=== PATIENT | female | born 1960 | race Caucasian/White ===

== ENCOUNTER 2020-02-19 11:33 | Emergency (ER) | payer OTHER ==
[2020-02-19] MEDS ORDERED: Meclizine 25 MG Tab PO ONE (12:43)
[2020-02-19] MEDS ORDERED: Ondansetron 4 MG Tab.DIS PO ONE (12:43)
--- NOTE | 2020-02-19 12:49 | EDM.PDOC ---
ED HPI GENERAL MEDICAL PROBLEM - General Chief Complaint: General Stated Complaint: LIGHT HEADED AND VERY DIZZY Time Seen by Provider: 02/19/20 12:32 Source of Information: Reports: Patient History Limitations: Reports: No Limitations - History of Present Illness Onset: Today Onset Date: 02/19/20 Onset Time: 08:00 Location: Reports: Head Quality: Reports: Other (Dizzy and vertigo lightheaded) Severity: Moderate Improves with: Reports: Rest, Other (Not moving head and having lights off. Rest. ) Worsens with: Reports: Movement Associated Symptoms: Reports: Headaches, Nausea/Vomiting denies Pain Score (Numeric/FACES): 0 - Related Data Allergies Allergy/AdvReac Type Severity Reaction Status Date / Time acetaminophen [From Percocet] Allergy Headache Verified 02/19/20 12:01 bee venom protein (honey bee) Allergy Swelling Verified 02/19/20 12:01 nickel Allergy Rash Verified 02/19/20 12:00 oxycodone [From Percocet] Allergy Headache Verified 02/19/20 12:01 Home Meds: Home Meds Metoprolol Succinate [Toprol XL] 25 mg PO BEDTIME 02/19/20 [History] Past Medical History HEENT History: Reports: Impaired Vision Cardiovascular History: Reports: Hypertension [employer] History: Reports: Neurological History: Reports: Concussion Endocrine/Metabolic History: Reports: Obesity/BMI 30+ Oncologic (Cancer) History: Reports: Uterine - Infectious Disease History Infectious Disease History: Reports: Chicken Pox, Measles - Past Surgical History HEENT Surgical History: Reports: Tonsillectomy GI Surgical History: Reports: Colonoscopy Female Surgical History: Reports: Hysterectomy, Salpingo-Oophorectomy Social & Family History - Tobacco Use Smoking Status *Q: Current Every Day Smoker Years of Tobacco use: 40 Packs/Tins Daily: 0.5 Used Tobacco, but Quit: No Second Hand Smoke Exposure: Yes - Caffeine Use Caffeine Use: Reports: Coffee, Energy Drinks, Soda - Alcohol Use Days Per Week of Alcohol Use: 0 - Recreational Drug Use Recreational Drug Use: No ED ROS GENERAL - Review of Systems Review Of Systems: See Below Constitutional: Reports: No Symptoms HEENT: Reports: Ear Discharge, Vertigo Respiratory: Reports: No Symptoms Cardiovascular: Reports: No Symptoms Endocrine: Reports: No Symptoms GI/Abdominal: Reports: No Symptoms : Reports: No Symptoms Musculoskeletal: Reports: No Symptoms Skin: Reports: No Symptoms Neurological: Reports: No Symptoms, Other (All neuro exam negative. Nystagmus neg. No drifr. ) Psychiatric: Reports: No Symptoms Hematologic/Lymphatic: Reports: No Symptoms Immunologic: Reports: No Symptoms ED EXAM, GENERAL - Physical Exam Exam: See Below Exam Limited By: No Limitations General Appearance: Alert, WD/WN, No Apparent Distress Eye Exam: Right Eye: Normal Inspection, PERRL Ears: Normal External Exam, Normal Canal, Normal TMs, Other (BL ear drums scarred from childhood ear infections. No evidence of drainage in either ear. ) Throat/Mouth: Normal Inspection, Normal Lips, Normal Teeth, Normal Gums, Normal Oropharynx, Normal Voice, No Airway Compromise Head: Normocephalic Neck: Normal Inspection, Supple, Non-Tender, Other (Movement brings vertigo like symptoms) Respiratory/Chest: No Respiratory Distress Cardiovascular: Normal Peripheral Pulses, Regular Rate, Rhythm, No Edema GI/Abdominal: Normal Bowel Sounds, Soft, Non-Tender, No Distention Back Exam: Normal Inspection Extremities: Normal Inspection, Normal Range of Motion, Non-Tender, No Pedal Edema, Normal Capillary Refill Neurological: Alert, Oriented, CN II-XII Intact, Normal Cognition, Other (Vertig o with movement) Skin Exam: Warm, Dry, Intact, Normal Color, No Rash Lymphatic: No Adenopathy Course - Vital Signs Text/Narrative:: Pt resents to ER with c/o vertigo, headache, n/v. Exam reveals negative ROS. Will medicate with 4 mg Zofran ODT and 10 minutes later dose with 25 mg M eclizine. Pt denies any other medical conditions, trauma, or injury. Denies tracel outside [place] or exposure to sick. SBP elevated. Seen PCP September 2019. Possible "white coat" or just not feeling well. Will medicate and re-check VS. Pt has postive effect from Zofran and Meclizine. Will monitor for 15 more minutes and re-check VS. Possible send RX for Zofran and MEclizine short course. Pt has relief of n/v, headache, and vertigo. Will d/c with spouse. Will prescribe Zofran and Meclizine for PRN use at home. Adviseto follow up with PCP or seek medical care sooner if needed. Last Recorded V/S: Last Vital Signs Temp 34.7 C L 02/19/20 12:10 Pulse 74 02/19/20 13:42 Resp 17 02/19/20 12:10 BP 135/82 02/19/20 13:42 Pulse Ox 98 02/19/20 13:42 - Orders/Labs/Meds Meds: Medications Discontinued Medications Generic Name Dose Route Start Last Admin Trade Name Shiv PRN Reason Stop Dose Admin Meclizine HCl 25 mg 02/19/20 12:43 02/19/20 12:57 Antivert PO 02/19/20 12:44 25 mg ONETIME ONE Administration Ondansetron HCl 4 mg 02/19/20 12:43 02/19/20 12:57 Zofran Odt PO 02/19/20 12:44 4 mg ONETIME ONE Administration Departure - Departure Time of Disposition: 13:45 Disposition: Home, Self-Care 01 Condition: Good Clinical Impression: Vertigo - Discharge Information *PRESCRIPTION DRUG MONITORING PROGRAM REVIEWED*: Not Applicable *COPY OF PRESCRIPTION DRUG MONITORING REPORT IN PATIENT MAUDE: Not Applicable Referrals: PCP,None [Primary Care Provider] - Forms: ED Department Discharge Care Plan Goals: Please take Zofran and Meclizine as indicated on prescription bottle. Get plenty of rest and drink lots of fluids. Stay out of sun to avoid over exposure or dehydration. Do not drive if you are experiencing vertigo like symptoms. Seek medical care immediately if symptoms become worse or life threatening. Follow up with PCP if needed regarding recent visit. Prescription was given for Zofran 4mg ODT SL Q6 hours as needed for nausea. Dispense 6 tabs. Meclizine 25 mg tablet by mouth Q8 hours as needed for dizziness or vertigo like symptoms. Dispense 6 tabs. Sepsis Event Note (ED) - Evaluation Sepsis Screening Result: No Definite Risk - Focused Exam Vital Signs: Vital Signs Temp Pulse Resp BP BP Pulse Ox 02/19/20 13:42 74 135/82 98 02/19/20 12:54 168/83 H 186/95 H 02/19/20 12:10 34.7 C L 80 17 168/84 H 100 02/19/20 11:57 34.7 C L 80 17 168/84 H 100
== END 2020-02-19 14:09 | disposition home or self-care (01) ==
LOC: JP.ED 11:33
DX: R42 Dizziness and giddiness (principal); I10 Essential (primary) hypertension; E66.9 Obesity, unspecified; Z68.41 Body mass index [BMI] 40.0-44.9, adult; F17.210 Nicotine dependence, cigarettes, uncomplicated; Z88.6 Allergy status to analgesic agent; Z88.5 Allergy status to narcotic agent; Z91.030 Bee allergy status; Z91.048 Other nonmedicinal substance allergy status
CPT/HCPCS: 99283; A9270